=== PATIENT | male | born 1950 | race African-American/Black ===

== ENCOUNTER 2016-09-05 15:28 | Outpatient (CLI) | payer OTHER | END 2016-09-05 15:31 | disposition short-term general hospital (02) | LOC: AMB 15:28 | DX: I10 Essential (primary) hypertension (principal); R06.02 Shortness of breath | CPT/HCPCS: A0425; A0427 ==

== ENCOUNTER 2016-09-05 15:32 | Emergency (ER) | payer OTHER ==
[~2016-09-05] VITALS: Ht 157.5 cm; Wt 68.5 kg
[2016-09-05 15:59] LABS: PLATELET COUNT 237 K/uL (142-355)
[2016-09-05 16:03] LABS: POTASSIUM 3.3 mmol/L (3.6-5.2)
[2016-09-05 18:31] VITALS: BP 164/99; TEMP 98
== END 2016-09-05 18:30 | disposition home or self-care (01) ==
LOC: ED 15:32
DX: I10 Essential (primary) hypertension (principal); K29.70 Gastritis, unspecified, without bleeding; B96.81 Helicobacter pylori [H. pylori] as the cause of diseases classified elsewhere
CPT/HCPCS: 80053; 82550; 82553; 84484; 85027; 86318; 93005; 96374; 96376; 99284; J3490